=== PATIENT | female | born 1985 | race Caucasian/White ===

== ENCOUNTER 2020-08-24 18:47 | Emergency (ER) | payer SELFPAY ==
[~2020-08-24] VITALS: Ht 170.2 cm; Wt 109.0 kg
[2020-08-24 20:00] LABS: HEMATOCRIT 38.8 % (37.0-47.0); HEMOGLOBIN 13.7 g/dl (12.0-16.0); IMMATURE GRANULOCYTES 0.6 % (0.0-5.0); MEAN CELL VOLUME 84.7 fL CALC (80.0-100.0); MEAN CORPUSCULAR HGB 29.9 pG CALC (26.0-32.0); MEAN CORPUSCULAR HGB CONC 35.3 g/dL CAL (32.0-36.0); NEUT# 6.95 thou/uL (2.00-7.15); RED BLOOD COUNT 4.58 mill/uL (4.20-5.60); RED CELL DISTRI WIDTH 14.7 % (11.5-15.5)
[2020-08-24 20:14] LABS: ALBUMIN 4.2 g/dL (3.2-5.0); ALKALINE PHOSPHATASE 62 u/l (38-126); ANION GAP 13 (6-22 (CALC)); BILIRUBIN, TOTAL 0.6 mg/dL (0.0-1.4); BUN 3 mg/dL (7-17); BUN/CREATININE RATIO 4 (12-20 (CALC)); CARBON DIOXIDE 24 mmol/l (22-30); CHLORIDE 103 mmol/l (95-108); CREATININE 0.7 mg/dL (0.5-1.0); ETHYL ALCOHOL 55 mg/dl (0-30); GFR > 60 ML/MIN (>=60 (CALC)); GFR FOR AFR.AMER. > 60 ML/MIN (>=60 (CALC)); POTASSIUM 3.7 mmol/l (3.5-5.1); SGOT/AST 23 u/l (14-36); SODIUM 136 mmol/l (137-146); TOTAL PROTEIN 7.8 g/dL (6.3-8.2)
[2020-08-24 20:15] LABS: PROTHROMBIN TIME 10.2 SECONDS (9.0-12.5)
[2020-08-24 23:25] LABS: URINE BILIRUBIN - DIPSTICK NEGATIVE (NEGATIVE); URINE COLOR YELLOW; URINE GLUCOSE - DIPSTICK NEGATIVE (NEGATIVE); URINE KETONE NEGATIVE (NEGATIVE); URINE PROTEIN - DIPSTICK NEGATIVE (NEG-TRACE); URINE UROBILINOGEN - DIPSTICK 0.2 E.U./dL (0.2)
[2020-08-24 23:37] LABS: URINE BLOOD DIPSTICK NEGATIVE (NEGATIVE); URINE LEUK ESTERASE SMALL (NEGATIVE); URINE NITRITE - DIPSTICK NEGATIVE (Negative)
[2020-08-24 23:43] LABS: URINE EPITHELIAL CELLS MODERATE EPI/hpf (0-FEW)
[2020-08-24 23:44] LABS: URINE BACTERIA FEW hpf; URINE YEAST FEW hpf
[2020-08-25 00:52] VITALS: BP 128/79
== END 2020-08-25 00:54 | disposition designated cancer center or children's hospital (05) | DRG 897 ==
LOC: ED 18:47
PROVIDERS: Emergency Medicine
DX: F15.159 Other stimulant abuse with stimulant-induced psychotic disorder, unspecified (principal)

== ENCOUNTER 2023-06-06 15:54 | Emergency (ER) | payer SELFPAY ==
[~2023-06-06 15:54] MED LIST: BACTRIM DS1 TAB PO
[2023-06-07] MEDS ORDERED: BACTRIM DS1 TAB PO (13:19)
[2023-06-07] MEDS ORDERED: CEPHALEXIN500 M1 PO (13:19)
[2023-06-07] MEDS ORDERED: MUPIROCIN21 TOP (13:19)
== END 2023-06-06 17:10 | disposition left against medical advice (07) | DRG 951 ==
LOC: ED 15:54 → LWOBS 17:09
DX: Z53.21 Procedure and treatment not carried out due to patient leaving prior to being seen by health care provider (principal)

== ENCOUNTER 2023-06-07 12:58 | Emergency (ER) | payer SELFPAY ==
[~2023-06-07] VITALS: Ht 170.2 cm; Wt 117.9 kg
[2023-06-07] MEDS ORDERED: CEPHALEXIN500 M1 PO (13:19)
[2023-06-07] MEDS ORDERED: BACTRIM DS1 TAB PO (13:19)
[2023-06-07] MEDS ORDERED: MUPIROCIN21 TOP (13:19)
[2023-06-07 13:45] VITALS: BP 111/58
== END 2023-06-07 13:46 | disposition home or self-care (01) | DRG 603 ==
LOC: ED 12:58
DX: L03.116 Cellulitis of left lower limb (principal); F15.10 Other stimulant abuse, uncomplicated; Z98.84 Bariatric surgery status; F17.200 Nicotine dependence, unspecified, uncomplicated

== ENCOUNTER 2023-11-29 09:42 | Emergency (ER) | payer SELFPAY ==
[~2023-11-29 09:42] MED LIST changes: +BENADRYL 25MG C25 MG PO; +BUSPAR5 MG PO; +CEPHALEXIN500 M1 PO; +FLONASE AL50 MCG/ACT IN; +INVEGA SUS234 MG/1.5 IM; +MUPIROCIN21 TOP; +RISPERIDONE2 MG PO; +TRILEPTAL300 M1 PO
== END 2023-11-29 09:50 | disposition left against medical advice (07) | DRG 951 ==
LOC: ED 09:42 → LWOBS 09:49
DX: Z53.21 Procedure and treatment not carried out due to patient leaving prior to being seen by health care provider (principal)